=== PATIENT | female | born 1970 | race Caucasian/White ===

== ENCOUNTER 2022-05-17 09:22 | Observation (INO) | payer OTHER ==
[~2022-05-17] VITALS: Ht 165.1 cm; Wt 63.6 kg
[~2022-05-17 09:22] MED LIST: Aspir 8181 MG PO; GLIP10 PO; Lisinopril-Hct1 EAC4 PO; NEURONTIN300 MG PO; OMEP20ER PO; SERT100 PO; Simvastatin20 MG PO; VITAMIN D31000 UNI1 PO; Ventolin/Prove6.7 GM INH; [UNRECOGNIZED DRUG - CODE] PO
[2022-05-17 11:03] LABS: BASOPHILS ABSOLUTE AUTO 0.06 K/mm3 (0.00-0.23); BASOPHILS PERCENT AUTO 1 % (0-2); EOSINOPHILS ABSOLUTE AUTO 0.16 K/mm3 (0.00-0.68); EOSINOPHILS PERCENT AUTO 2 % (0-6); Hemoglobin 13.9 g/dL (11.5-16.0); IMMATURE GRAN ABSOLUTE AUTO 0.02 K/mm3 (0.00-0.10); IMMATURE GRAN PERCENT AUTO 0 % (0-1); LYMPHOCYTES ABSOLUTE AUTO 2.69 K/mm3 (0.84-5.20); LYMPHOCYTES PERCENT AUTO 30 % (21-46); MONOCYTES PERCENT AUTO 7 % (4-13); Mean Corpuscular HGB Conc 34.8 g/dL (31.5-36.5); Mean Corpuscular Volume 84 fL (80-100); Mean Platelet Volume 9.3 fL (9.1-12.4); NEUTROPHILS ABSOLUTE AUTO 5.57 K/mm3 (1.96-9.15); NEUTROPHILS PERCENT AUTO 61 % (41-73); Platelet Count 325 K/mm3 (150-400); RDW Coefficient Variation 12.6 % (11.7-14.2); RDW Standard Deviation 38.2 fL (35.1-46.3); Red Blood Cell Count 4.79 M/mm3 (3.80-5.20)
[2022-05-17 11:17] LABS: Anti-Xa UFH, PHA Monitoring <0.10 IU/mL; Prothrombin Time Results 10.5 Sec (9.7-11.5)
[2022-05-17 11:27] LABS: Albumin, Blood 3.5 g/dL (3.4-5.0); Albumin/Globulin Ratio 1.1 (0.8-1.8); Bilirubin, Total 0.3 mg/dL (0.1-1.0); Bun/Creatinine Ratio 44.7 (12.0-20.0); Creatinine, Blood 0.38 mg/dL (0.40-1.00); Globulin, Blood 3.2 g/dL (2.2-4.0); Potassium, Blood 3.9 mmol/L (3.5-5.5); Total Protein, Blood 6.7 g/dL (6.4-8.2)
[2022-05-17] MEDS ORDERED: CARVEDILOL3.125 MG PO (11:58)
[2022-05-17] MEDS ORDERED: ROSUVASTATIN CAL5 MG PO (11:59)
--- NOTE | 2022-05-17 19:08 | NUR ---
PCU ADMIT / END OF SHIFT NOTE PT BROUGHT TO PCU-07 BY BED FROM WHEEL SETTER @ APPROX 1720. PT A&O X4. VSS. SPO2 > 92% ON RA. MONITOR SHOWING SR, HR 80s. PT W/ R GROIN ACCESS SITE. SITE WNL UPON ARRIVAL, NO BLEEDING, NO HEMATOMA, DRESSING C/D/I. HEPARIN GTT RESUMED ON ARRIVAL TO UNIT PER PHARMACY GUIDANCE. REPORT GIVEN TO ACCEPTING PAPER SPOOLER RN.
--- NOTE | 2022-05-17 20:17 | NUR ---
PT LEAVING AMA AND IS A&OX4 WHEN COMING ONTO THE SHIFT THE PT WAS VERY AGGITATED AND WAS C/O PAIN. SHE WAS YELLING AT STAFF, REFUSING BLOOD DRAWS, REFUSING ASSESSMENTS, AND WANTED THE HEPRIN DRIP OFF. SHE WAS GIVEN HER GABAPENTIN EARLY, MEDICATED WITH 650 MG TYLONAL, REPOSITIONED IN BED, AND WAS SET UP W/ HEAT THERAPY. SHE STATED THAT SHE USUALLY SELF MEDICATES AT HOME WITH [facility] TO HELP HER PAIN. SHE KEPT STATING THAT SHE WAS WANTING TO LEAVE AMA, DESPITE THE EDUCATION OF THE RISKS ON LEAVING. PT SIGNED THE AMA FORM AND UNDERSTOOD THE RISKS AND REFUSED TO TALK TO ANY DOCTOR. HER IV WAS SAFELY D/C'D WNL AND CATHETER WAS INTACT. HER BELONGINGS WERE SENT WITH HER, AND SHE HAD HER SIGNIFICANT OTHER PICK HER UP. PT LEFT AT 2014.
== END 2022-05-17 20:15 | disposition left against medical advice (07) ==
LOC: ER 09:22 → ERHOLD 09:23 → PCU 17:32
PROVIDERS: Student in an Organized Health Care Education/Training Program; ADMIT Internal Medicine
DX: I70.223 Atherosclerosis of native arteries of extremities with rest pain, bilateral legs (principal); I25.10 Atherosclerotic heart disease of native coronary artery without angina pectoris; I11.0 Hypertensive heart disease with heart failure; I50.30 Unspecified diastolic (congestive) heart failure; I25.2 Old myocardial infarction; E11.9 Type 2 diabetes mellitus without complications; E78.5 Hyperlipidemia, unspecified; F17.200 Nicotine dependence, unspecified, uncomplicated; J45.20 Mild intermittent asthma, uncomplicated; K21.9 Gastro-esophageal reflux disease without esophagitis; Z95.5 Presence of coronary angioplasty implant and graft; Z88.0 Allergy status to penicillin; Z88.2 Allergy status to sulfonamides; Z91.09 Other allergy status, other than to drugs and biological substances; Z79.84 Long term (current) use of oral hypoglycemic drugs; Z79.899 Other long term (current) drug therapy; Z79.82 Long term (current) use of aspirin; Z95.1 Presence of aortocoronary bypass graft
CPT/HCPCS: 36415; 76937; 80053; 85025; 85347; 85520; 85610; 85730; 99152; 99153; A9270; C1714; C1725; C1760; C1769; C1874; C1887; C1894; C2623; G0378; J1644; J2250; J2997; J3010; J7030; J7050; Q9967

== ENCOUNTER 2023-01-31 08:08 | Observation (INO) | payer OTHER ==
[~2023-01-31] VITALS: Ht 165.1 cm; Wt 58.5 kg
[~2023-01-31 08:08] MED LIST changes: +CARVEDILOL3.125 MG PO; +METFORMIN HCL1000 M4 PO; +ROSUVASTATIN CAL5 MG PO; -[UNRECOGNIZED DRUG - CODE] PO
[2023-01-31 09:14] LABS: Source, Urine Clean Catch
[2023-01-31 09:23] LABS: Bilirubin, Urine Neg (Neg); Blood, Urine 1+ (Neg); Glucose Qualitative, Urine 4+ (Neg); Ketones, Urine 4+ (Neg); Leukocyte Esterase, Urine 1+ (Neg); Nitrite, Urine Neg (Neg); Protein, Urine 2+ (Neg); Urobilinogen, Urine NORM (Normal)
[2023-01-31 09:24] LABS: BASOPHILS ABSOLUTE AUTO 0.04 K/mm3 (0.00-0.23); BASOPHILS PERCENT AUTO 0 % (0-2); EOSINOPHILS ABSOLUTE AUTO 0.01 K/mm3 (0.00-0.68); EOSINOPHILS PERCENT AUTO 0 % (0-6); Hematocrit 47.9 % (33.0-51.0); Hemoglobin 17.1 g/dL (11.5-16.0); IMMATURE GRAN ABSOLUTE AUTO 0.04 K/mm3 (0.00-0.10); IMMATURE GRAN PERCENT AUTO 0 % (0-1); LYMPHOCYTES ABSOLUTE AUTO 1.15 K/mm3 (0.84-5.20); LYMPHOCYTES PERCENT AUTO 10 % (21-46); MONOCYTES ABSOLUTE AUTO 0.51 K/mm3 (0.16-1.47); MONOCYTES PERCENT AUTO 4 % (4-13); Mean Corpuscular HGB 29.5 pg (26.0-34.0); Mean Corpuscular HGB Conc 35.7 g/dL (31.5-36.5); Mean Corpuscular Volume 83 fL (80-100); NEUTROPHILS PERCENT AUTO 86 % (41-73); Platelet Count 319 K/mm3 (150-400); RDW Coefficient Variation 12.3 % (11.7-14.2); RDW Standard Deviation 37.3 fL (35.1-46.3); Red Blood Cell Count 5.79 M/mm3 (3.80-5.20); White Blood Cell Count 12.05 K/mm3 (4.00-11.30)
[2023-01-31 09:29] LABS: Appearance, Urine Clear (Clear); Color, Urine Yellow (P-Yellow)
[2023-01-31 09:30] LABS: Amorphous Light (0-Heavy); Bacteria Rare /hpf; Red Blood Cells, Urine 0-2 /hpf (0-2); Squamous Epithelial Cells Rare /hpf (Few); White Blood Cells, Urine 0-2 /hpf (0-5)
[2023-01-31 10:14] LABS: Albumin, Blood 4.1 g/dL (3.4-5.0); Bilirubin, Total 0.7 mg/dL (0.1-1.0); Bun/Creatinine Ratio 35.1 (12.0-20.0); Calcium, Blood 9.6 mg/dL (8.5-10.1); Creatinine, Blood 0.34 mg/dL (0.40-1.00); Potassium, Blood 3.4 mmol/L (3.5-5.5); Total Protein, Blood 8.1 g/dL (6.4-8.2)
[2023-01-31] MEDS ORDERED: CLOP75 PO (14:12)
[2023-01-31] MEDS ORDERED: GABA300 PO (14:53)
[2023-01-31] MEDS ORDERED: NITR.4SL SL (14:56)
[2023-01-31 17:15] VITALS: BP 161/99
--- NOTE | 2023-01-31 18:56 | NUR ---
SHIFT SUMMARY ARRIVED TO FLOOR FROM ED, SKIN INTACT, NAUSEA MEDS GIVEN, ABX GIVEN WITH NO COMPLICATIONS. BLOOD GLUCOSE COVERED WITH SLIDING SCALE. TELE PLACED, ON ROOM AIR, NO COMPLAINTS OF PAIN AT THIS TIME. WILL CONTINUE TO MONITOR
[2023-01-31 20:03] VITALS: BP 157/93
[2023-02-01 04:28] VITALS: BP 134/72
[2023-02-01 05:48] LABS: BASOPHILS ABSOLUTE AUTO 0.03 K/mm3 (0.00-0.23); BASOPHILS PERCENT AUTO 0 % (0-2); EOSINOPHILS ABSOLUTE AUTO 0.15 K/mm3 (0.00-0.68); EOSINOPHILS PERCENT AUTO 1 % (0-6); Hematocrit 45.2 % (33.0-51.0); Hemoglobin 15.8 g/dL (11.5-16.0); IMMATURE GRAN ABSOLUTE AUTO 0.03 K/mm3 (0.00-0.10); IMMATURE GRAN PERCENT AUTO 0 % (0-1); LYMPHOCYTES ABSOLUTE AUTO 2.17 K/mm3 (0.84-5.20); LYMPHOCYTES PERCENT AUTO 18 % (21-46); MONOCYTES ABSOLUTE AUTO 0.79 K/mm3 (0.16-1.47); MONOCYTES PERCENT AUTO 7 % (4-13); Mean Corpuscular HGB 29.3 pg (26.0-34.0); Mean Corpuscular Volume 84 fL (80-100); Mean Platelet Volume 9.4 fL (9.1-12.4); NEUTROPHILS ABSOLUTE AUTO 8.69 K/mm3 (1.96-9.15); NEUTROPHILS PERCENT AUTO 73 % (41-73); Platelet Count 323 K/mm3 (150-400); RDW Coefficient Variation 12.6 % (11.7-14.2); RDW Standard Deviation 37.7 fL (35.1-46.3); White Blood Cell Count 11.86 K/mm3 (4.00-11.30)
--- NOTE | 2023-02-01 05:55 | NUR ---
SHIFT SUMMARY PT IS A&O4. INDEPEDENT IN THE ROOM, RA, VSS, NO COMPLAINTS OF CHEST PAIN OVERNIGHT, NO ACUTE OVERNIGHT EVENTS, CONTINUE POC
[2023-02-01 06:14] LABS: Albumin, Blood 3.4 g/dL (3.4-5.0); Anion Gap 7 mmol/L (6-16); Blood Urea Nitrogen 14 mg/dL (8-24); Bun/Creatinine Ratio 40.8 (12.0-20.0); CO2, Blood 25 mmol/L (21-32); Chloride, Blood 99 mmol/L (98-108); Creatinine, Blood 0.34 mg/dL (0.40-1.00); Glomerular Filtration Rate 121 (60-); Glucose, Blood 217 mg/dL (70-99); Magnesium, Blood 2.1 mg/dL (1.6-2.4); Phosphorus, Blood 2.7 mg/dL (2.5-4.9); Potassium, Blood 3.6 mmol/L (3.5-5.5); Sodium, Blood 131 mmol/L (136-145)
[2023-02-01 08:03] VITALS: BP 103/62
--- NOTE | 2023-02-01 10:41 | NUR ---
DR. LAW WAS CALLED BY THIS RN @2960 TO STATE PT IS "LEAVING WITH OR WITHOUT HIS CONSENT." PT NOT WILLING TO WAIT AROUND FOR POSSIBLE STRESS TEST OR ECHO. AMA FORM FILLED OUT AND PT SIGNED @6000 WITH THIS RN WITNESS.
--- NOTE | 2023-02-01 12:18 | NUR ---
DISCHARGE: PT D/C [facility] @1210 WITH . ALL BELONGINGS SENT WITH PT AND . RFA IV REMOVED W/O COMPLICATIONS. TELE SENT BACK.
== END 2023-02-01 12:02 | disposition left against medical advice (07) ==
LOC: ER 08:08 → MEDS 08:09
PROVIDERS: Student in an Organized Health Care Education/Training Program; ADMIT Family Medicine
DX: R07.89 Other chest pain (principal); R10.13 Epigastric pain; I25.10 Atherosclerotic heart disease of native coronary artery without angina pectoris; I50.30 Unspecified diastolic (congestive) heart failure; I11.0 Hypertensive heart disease with heart failure; E11.51 Type 2 diabetes mellitus with diabetic peripheral angiopathy without gangrene; Z88.2 Allergy status to sulfonamides; Z88.0 Allergy status to penicillin
CPT/HCPCS: 36415; 71046; 80053; 80069; 81001; 82947; 83690; 83735; 83880; 84484; 85025; 87086; 93005; 93010; 96374; 96375; 96376; 99285-25; A9270; G0378; J0696; J1815; J2405; J7030; J7050; J7060